=== PATIENT | female | born 1995 | race Hispanic/Latino ===

== ENCOUNTER 2024-05-29 12:24 | Emergency (ER) | payer SELFPAY ==
[2024-05-29 12:25] VITALS: BP 116/50
[2024-05-29 12:47] LABS: % Basophils 0.9 % (0-2); % Eosinophils 2.9 % (0-6); % Immature Granulocytes 0.4 % (0-0.5); % Lymphocytes 35.4 % (20.5-51.1); % Monocytes 6.7 % (1.7-9.3); % Neutrophils 53.7 % (42.2-75.2); Absolute Basophils 0.1 10^3/uL (0-0.2); Absolute Eosinophils 0.3 10^3/uL (0-0.7); Absolute Monocytes 0.6 10^3/uL (0.1-0.6); Absolute Neutrophils 4.6 10^3/uL (1.4-6.5); Hemoglobin 13.1 g/dL (12.0-16.0); Mean Corp Hgb Conc. 33.6 g/dL (33.0-37.0); Mean Corpuscular Volume 86.3 fL (81.0-99.0); Mean Platelet Volume 9.7 fL (7.4-10.4); Nucleated Red Blood Cells % 0 %; Platelet Count 316 10^3/uL (130-400); Red Blood Cell Count 4.52 10^6/uL (4.20-5.40); Red Cell Dist. Width 11.9 % (11.5-14.5); White Blood Cell Count 8.5 10^3/uL (4.8-10.8)
[2024-05-29 12:56] LABS: HCG, Serum Qualitative Screen Negative
[2024-05-29 12:59] LABS: ALT (SGPT) 34 U/L (0-35); AST (SGOT) 26 U/L (14-36); Albumin 3.9 g/dl (3.5-5.0); Alkaline Phosphatase 97 U/L (38-126); Blood Urea Nitrogen 11 mg/dl (7-17); Calcium 8.6 mg/dl (8.4-10.2); Carbon Dioxide 23 mmol/L (22-30); Chloride 107 mmol/L (98-107); Glucose 106 mg/dl (70-99); Potassium 3.8 mmol/L (3.5-5.1); Sodium 137 mmol/L (135-145); Total Bilirubin 0.4 mg/dl (0.2-1.3); Total Protein 6.6 g/dl (6.3-8.2); eGFR > 60.00
[2024-05-29 13:13] VITALS: BMI 25.1
--- NOTE | 2024-05-29 13:15 | ED.GENMED ---
History of Present Illness
General
Chief Complaint: Throat Problem
Source: patient
Time Seen by Provider: 05/29/24 12:56
History of Present Illness
History of Present Illness:
English language line lyft driver [id number] used for interpretation
29-year-old female with no significant past medical history presents to the emergency department for evaluation of left-sided facial pain and swelling for around 1 month accompanied with left-sided ear pressure and mild headache. Patient was given
a prescription of amoxicillin as well as Motrin by family for the last 3 days and states she has not had any relief with this. Symptoms seem to have started as a mild upper respiratory infection at initial onset. No other symptoms at this time.
Past History
Past History
ED Past Medical History: None
ED Past Surgical History: None
Social History
Tobacco: Non-smoker
Alcohol: Occasional
Drug: None
Personal:
Living: with family
Employment: Employed
Review of Systems
Review of Systems
All Other Systems: ROS reviewed and negative except as documented in HPI and ROS
Phy Exam
Physical Exam
Physical Exam:
GENERAL: Alert , in no apparent distress
HEAD: NCAT
EYE: conjunctiva clear
NECK: Supple, no significant adenopathy.
ENT: o/p clr, mmm. Left TM with small effusion but no bulging of TM. Right TM WNL. Mild edema to left maxillar sinus. No mastoid erythema/bulging
CARDIAC: Regular rate and rhythm
LUNGS: Clear breath sounds bilaterally, no acute respiratory distress, no wheezes/rales/rhonchi
NEUROLOGICAL: Alert and oriented
SKIN: Warm and dry, skin intact.
MUSCULOSKELETAL: well perfused.
PSYCH: Normal and appropriate interaction.
Scores
Heart Failure Risk
Heart Failure Risk Score: Not Applicable
Heart Score for Chest Pain Patients
STEMI patient?: Not applicable
Withdrawal Assessment of Alcohol
Withdrawal Assessment Completed?: Not applicable
Course
Orders/Labs/Results
Orders:
Orders
05/29/24 12:29
Test Result ONCE
05/29/24 12:33
Complete Blood Count/With Diff Urgent
Comprehensive Metabolic Panel Urgent
HCG, Serum Qualitative Screen Urgent
05/29/24 12:57
Add On- LAB Urgent
Tests Added?: TSH
Abnormal Lab Results
05/29/24
12:33
Creatinine 0.4 L mg/dL
(0.6-1.0)
Glucose 106 H mg/dl
(70-99)
05/29/24 12:33
05/29/24 12:33
Vital Signs
Initial and Last Documented VS:
Initial Vital Signs
Temp Pulse Resp BP Pulse Ox
98.2 F 69 20 116/50 99
05/29/24 12:25 05/29/24 12:25 05/29/24 12:25 05/29/24 12:25 05/29/24 12:25
Last Documented Vital Signs
Temp Pulse Resp BP Pulse Ox
98.4 F 75 16 111/86 98
05/29/24 13:53 05/29/24 13:53 05/29/24 13:53 05/29/24 13:53 05/29/24 13:53
MDM/Problems Addressed
Differential Diagnosis Includes:
Sinusitis, otitis media/otitis externa, mono, pharyngitis, strep
MDM/Problems Addressed:
29-year-old female presenting to the ER for evaluation of left-sided facial pain that has been ongoing for around 1 month, has had mild URI-like symptoms associated with this. Exam does reveal a small left ear effusion and some mild left maxillary
sinus edema. Patient is otherwise hemodynamically stable in no acute. No concern for intracranial pathology. Will treat with Sudafed, nasal steroid and oral steroid. Since patient is already started amoxicillin advised her to continue taking
this. Stable for discharge home and aware of return precautions to the ER.
*Pulse Oximetry
Patient hypoxic: no
*Critical Care Note
Total Time (30-74mins, 75-104mins- exclusive of procedures): Not Applicable
ED Attending Note
-
Portions of this chart may have been created with voice recognition software.� Occasional wrong word or��sound alike� substitutions may have occurred due to the inherent limitations of voice recognition software.
Discharge Plan
Departure
Patient Disposition: Home (Routine Discharge)
Date of Disposition: 05/29/24
Time of Disposition: 13:27
Patient with high blood pressure during this ER visit?: No
Discharge Problem:
Sinusitis
Instructions: Sinusitis in adults - ED discharge instructions
Prescriptions:
New
methylprednisolone [Medrol (Adelfo)] 4 mg tablets,dose pack
4 mg PO DIRECTED Qty: 21 0RF
mometasone [Nasonex 24hr Allergy] 50 mcg/actuation spray,non-aerosol
2 spray intranasal DAILY Qty: 17 0RF
pseudoephedrine HCl [Sudafed] 30 mg tablet
60 mg PO ONCE PRN (Reason: nasal congestion) Qty: 15 0RF
No Action
naproxen 500 MG tablet,delayed release (DR/EC)
500 mg PO BID 7 Days Qty: 14 0RF
Referrals:
NONE,* [Family Provider] -
Stand Alone Forms: Return to Work
Interventions
Interventions:
*Risk Screen - Suicide Last Done: 05/29/24 13:13
*General Assessment Last Done: 05/29/24 13:13
*Neglect/Abuse Screening Last Done: 05/29/24 13:13
ED- Fall Risk Assessment Last Done: 05/29/24 13:22
*ED COVID-19 Vaccine History Last Done: 05/29/24 13:13
*Nursing Disposition Last Done: 05/29/24 13:53
ED-EENT Assessment Last Done: 05/29/24 13:13
ED- Pulmonary Assessment Last Done: 05/29/24 13:13
Discharge Date and Time
Discharge Date/Time: 05/29/24 13:55
Print Language: AMHARIC
--- NOTE | 2024-05-29 13:52 | EDRN ---
sales operations coordinator [id number] used for discharge instructions. Verbalized understanding. Ambulated with steady gait to the lobby.
[2024-05-29 13:53] VITALS: BP 111/86
[2024-05-29 16:48] LABS: TSH 0.57 uIU/ml (0.47-4.68)
== END 2024-05-29 13:55 | disposition home or self-care (01) ==
LOC: EMR 12:24
PROVIDERS: Emergency Medicine; EMERGENCY PHYSICIAN Student in an Organized Health Care Education/Training Program
DX: J32.9 Chronic sinusitis, unspecified (principal)
CPT/HCPCS: 99283; 80053; 84443; 84703; 85025

== ENCOUNTER → 2024-10-12 08:10 | Outpatient (REF) | payer OTHER, SELFPAY ==
[2024-10-12 09:35] LABS: % Eosinophils 3.8 % (0-6); % Immature Granulocytes 0.5 % (0-0.5); % Monocytes 7.8 % (1.7-9.3); % Neutrophils 50.9 % (42.2-75.2); Absolute Basophils 0.1 10^3/uL (0-0.2); Absolute Eosinophils 0.3 10^3/uL (0-0.7); Absolute Lymphocytes 2.9 10^3/uL (1.2-3.4); Absolute Monocytes 0.6 10^3/uL (0.1-0.6); Absolute Neutrophils 4.1 10^3/uL (1.4-6.5); Hemoglobin 12.5 g/dL (12.0-16.0); Mean Corp Hgb Conc. 32.9 g/dL (33.0-37.0); Mean Corpuscular Hgb 29.4 pg (27.0-31.0); Mean Corpuscular Volume 89.4 fL (81.0-99.0); Mean Platelet Volume 10.3 fL (7.4-10.4); Nucleated Red Blood Cells % 0 %; Platelet Count 301 10^3/uL (130-400); Red Blood Cell Count 4.25 10^6/uL (4.20-5.40); Red Cell Dist. Width 12.2 % (11.5-14.5); Reticulocyte Count 1.9 % (0.4-2.8); White Blood Cell Count 8.1 10^3/uL (4.8-10.8)
[2024-10-12 09:55] LABS: Glycohemoglobin (HgbA1c) 5.4 % (4.0-5.6)
[2024-10-12 10:14] LABS: ALT (SGPT) 20 U/L (0-35); AST (SGOT) 23 U/L (14-36); Albumin 3.8 g/dl (3.5-5.0); Alkaline Phosphatase 81 U/L (38-126); Blood Urea Nitrogen 10 mg/dl (7-17); Calcium 8.3 mg/dl (8.4-10.2); Carbon Dioxide 25 mmol/L (22-30); Chloride 112 mmol/L (98-107); Glucose 100 mg/dl (70-99); Potassium 4.7 mmol/L (3.5-5.1); Sodium 141 mmol/L (135-145); Total Bilirubin 0.4 mg/dl (0.2-1.3); Total Protein 6.4 g/dl (6.3-8.2); eGFR > 60.00
[2024-10-12 10:43] LABS: TSH Reflex To Free T4 0.69 uIU/ml (0.47-4.68)
== END ==
LOC: CLINIC 08:10
PROVIDERS: ATTENDING PHYSICIAN Internal Medicine
DX: Z13.1 Encounter for screening for diabetes mellitus (principal); R53.82 Chronic fatigue, unspecified
CPT/HCPCS: 36415; 80053; 83036; 84443; 85025; 85045